=== PATIENT | male | born 1985 | race American Indian/Alaskan Native ===

== ENCOUNTER 2017-07-30 10:58 | Emergency (ER) | payer OTHER ==
[2017-07-30] MEDS ORDERED: TYLENOL PO ONE (12:05)
[2017-07-30] MEDS ORDERED: TYLENOL ONE (12:09)
[2017-07-30 12:39] LABS: Hematocrit 45.2 % (35.5-45.6); Hemoglobin 14.8 gm/dl (11.8-15.2); Mean Corpuscular HGB Conc 33 % (32-34); Mean Corpuscular Hemoglobin 33 pg (28-32); Mean Corpuscular Volume 100 fl (84-94); Platelet Count 293 K/mm3 (140-440); Red Blood Count 4.53 M/mm3 (3.65-5.03); Red Cell Distribution Width 12.7 % (13.2-15.2); White Blood Count 19.5 K/mm3 (4.5-11.0)
[2017-07-30 13:05] LABS: Anion Gap 19 mmol/L; BUN/Creatinine Ratio 12; Blood Urea Nitrogen 11 mg/dL (9-20); Calcium 9.7 mg/dL (8.4-10.2); Carbon Dioxide 26 mmol/L (22-30); Chloride 99.5 mmol/L (98-107); Glucose 93 mg/dL (75-100); Potassium 4.3 mmol/L (3.6-5.0); Sodium 140 mmol/L (137-145)
[2017-07-30] MEDS ORDERED: LIDOCAINE VISCOUS 2% PO ONE (15:09)
--- NOTE | 2017-07-30 15:56 | Emergency Department Report ---
ED ENT HPI - General Chief complaint: Sore Throat Stated complaint: SWOOLEN NECK GLANDS, KNOT IN THROAT Time Seen by Provider: 07/30/17 14:23 Source: patient Mode of arrival: Ambulatory Limitations: No Limitations - History of Present Illness Initial comments: This is a 32-year-old male nontoxic, well nourished in appearance, no acute signs of distress presents to the ED complaining of sore throat 1 week. Patient describes sore throat as sensation as swallowing razor blades. Patient denies any facial swelling, pus, drainage, difficulty breathing, difficulty swallowing, nausea, vomiting, chills, headache, stiff neck, chest and shortness of breath. Patient stated he has subjective fever. Patient denies any allergies or past medical history. MD complaint: sore throat -: Gradual, week(s) (1) Location: throat Severity: mild Severity scale (0 -10): 8 Quality: other (sensation as swallowing razor blades) Consistency: constant Improves with: none Worsens with: none Associated Symptoms: fever, pain with swallowing, sore throat. denies: cough, gum swelling, toothache, tinnitus, hearing loss, discharge from ear, rhinorrhea - Related Data Previous Rx's Medication Instructions Recorded Last Taken Type Amoxicillin 500 mg PO BID #20 capsule 07/30/17 Unknown Rx Nystas/Diphen/Xyl Visc/Mylanta 15 ml MM Q8H 10 Days 07/30/17 Unknown Rx [Magic Mouthwash] Allergies Allergy/AdvReac Type Severity Reaction Status Date / Time No Known Allergies Allergy Unverified 07/30/17 11:59 ED Dental HPI - General Chief complaint: Sore Throat Stated complaint: SWOOLEN NECK GLANDS, KNOT IN THROAT Time Seen by Provider: 07/30/17 14:23 Source: patient Mode of arrival: Ambulatory Limitations: No Limitations - Related Data Previous Rx's Medication Instructions Recorded Last Taken Type Amoxicillin 500 mg PO BID #20 capsule 07/30/17 Unknown Rx Nystas/Diphen/Xyl Visc/Mylanta 15 ml MM Q8H 10 Days 07/30/17 Unknown Rx [Magic Mouthwash] Allergies Allergy/AdvReac Type Severity Reaction Status Date / Time No Known Allergies Allergy Unverified 07/30/17 11:59 ED Review of Systems ROS: Stated complaint: SWOOLEN NECK GLANDS, KNOT IN THROAT Other details as noted in HPI Constitutional: denies: chills, fever Eyes: denies: eye pain, eye discharge, vision change ENT: throat pain. denies: ear pain Respiratory: denies: cough, shortness of breath, wheezing Cardiovascular: denies: chest pain, palpitations Endocrine: no symptoms reported Gastrointestinal: denies: abdominal pain, nausea, diarrhea Genitourinary: denies: urgency, dysuria Musculoskeletal: denies: back pain, joint swelling, arthralgia Skin: denies: rash, lesions Neurological: denies: headache, weakness, paresthesias Psychiatric: denies: anxiety, depression Hematological/Lymphatic: denies: easy bleeding, easy bruising ED Past Medical Hx - Past Medical History Previous Medical History?: No - Surgical History Past Surgical History?: No - Social History Smoking Status: Current Every Day Smoker Substance Use Type: None - Medications Home Medications: Home Medications Medication Instructions Recorded Confirmed Last Taken Type Amoxicillin 500 mg PO BID #20 capsule 07/30/17 Unknown Rx Nystas/Diphen/Xyl Visc/Mylanta 15 ml MM Q8H 10 Days 07/30/17 Unknown Rx [Magic Mouthwash] ED Physical Exam - General Limitations: No Limitations General appearance: alert, in no apparent distress - Head Head exam: Present: atraumatic, normocephalic, normal inspection - Eye Eye exam: Present: normal appearance, PERRL, EOMI. Absent: scleral icterus, conjunctival injection, nystagmus, periorbital swelling, periorbital tenderness Pupils: Present: normal accommodation - ENT ENT exam: Present: mucous membranes moist, TM's normal bilaterally, normal external ear exam - Expanded ENT Exam Expanded Ear exam: Present: normal external inspection Mouth exam: Present: normal external inspection, tongue normal. Absent: drooling, trismus, muffled voice, tongue elevation, laceration Teeth exam: Present: normal inspection Throat exam: Positive: tonsillar erythema, tonsillomegaly (2+), tonsillar exudate. Negative: R peritonsillar mass, L peritonsillar mass - Neck Neck exam: Present: normal inspection, full ROM. Absent: tenderness, meningismus, lymphadenopathy, thyromegaly - Respiratory Respiratory exam: Present: normal lung sounds bilaterally. Absent: respiratory distress, wheezes, rales, rhonchi, stridor, chest wall tenderness, accessory muscle use, decreased breath sounds, prolonged expiratory - Cardiovascular Cardiovascular Exam: Present: regular rate, normal rhythm, normal heart sounds. Absent: systolic murmur, diastolic murmur, rubs, gallop - GI/Abdominal GI/Abdominal exam: Present: soft, normal bowel sounds. Absent: distended, tenderness, guarding, rebound, rigid, diminished bowel sounds - Rectal Rectal exam: Present: deferred - Extremities Exam Extremities exam: Present: normal inspection, full ROM, normal capillary refill. Absent: tenderness, pedal edema, joint swelling, calf tenderness - Back Exam Back exam: Present: normal inspection, full ROM. Absent: tenderness, CVA tenderness (R), CVA tenderness (L), muscle spasm, paraspinal tenderness, vertebral tenderness, rash noted - Neurological Exam Neurological exam: Present: alert, oriented X3, CN II-XII intact, normal gait, reflexes normal - Psychiatric Psychiatric exam: Present: normal affect, normal mood - Skin Skin exam: Present: warm, dry, intact, normal color. Absent: rash ED Course Vital Signs 07/30/17 07/30/17 07/30/17 11:56 12:08 14:27 Temperature 99.6 F Pulse Rate 98 H Respiratory 18 18 18 Rate Blood Pressure 132/82 O2 Sat by Pulse 98 Oximetry - Reevaluation(s) Reevaluation #1: 07/30/17 15:55 Patient is speaking in full sentences with no signs of distress noted. ED Medical Decision Making - Lab Data Result diagrams: 07/30/17 12:14 07/30/17 12:14 - Medical Decision Making 32 male that presents with strep throat. Patient was examined by me and patient is stable. Strep swab has been obtained with positive results. Patient received viscous lidocaine which patient stated sore throat has subsided. Patient be treated with amoxicillin 10 days. Patient was instructed to follow-up with a primary care doctor in 3-5 days or if symptoms worsen and continue return to emergency room as soon as possible possible. Patient is hemodynamically stable with stable vital signs. Patient states he is feeling better. At time time of discharge, the patient does not seem toxic or ill in appearance. No acute signs of distress noted. Patient agrees to discharge treatment plan of care. No further questions noted by the patient. Critical care attestation.: If time is entered above; I have spent that time in minutes in the direct care of this critically ill patient, excluding procedure time. ED Disposition Clinical Impression: Strep throat Disposition: DC-01 TO HOME OR SELFCARE Is pt being admited?: No Does the pt Need Aspirin: No Condition: Stable Instructions: Strep Throat (ED), Amoxicillin/Clavulanate Potassium (By mouth) Additional Instructions: Follow-up with a primary care doctor in 3-5 days or if symptoms worsen and continue return to emergency room as soon as possible possible. Prescriptions: Amoxicillin 500 mg PO BID #20 capsule Nystas/Diphen/Xyl Visc/Mylanta [Magic Mouthwash] 15 ml MM Q8H 10 Days Referrals: PRIMARY CAREMD [Primary Care Provider] - 3-5 Days GILA GORE MD [Staff Physician] - 3-5 Days [facility] [Outside] - 3-5 Days [facility] [place] [Outside] - 3-5 Days Forms: Work/School Release Form(ED)
[2017-07-30 16:10] VITALS: BP 120/84
== END 2017-07-30 16:12 | disposition home or self-care (01) ==
LOC: ED 10:58
DX: J02.0 Streptococcal pharyngitis (principal); F17.200 Nicotine dependence, unspecified, uncomplicated
CPT/HCPCS: 36415; 80048; 85027; 87430; 99283

== ENCOUNTER 2022-07-06 17:10 | Emergency (ER) | payer SELFPAY ==
[2022-07-06 18:42] VITALS: BP 126/77
== END 2022-07-06 19:52 | disposition left against medical advice (07) ==
LOC: ED 17:10
DX: K64.9 Unspecified hemorrhoids (principal); Z53.21 Procedure and treatment not carried out due to patient leaving prior to being seen by health care provider

== ENCOUNTER 2022-07-06 20:41 | Emergency (ER) | payer SELFPAY ==
[2022-07-06 20:51] VITALS: BP 122/80
== END 2022-07-06 21:15 | disposition left against medical advice (07) ==
LOC: ED 20:41
DX: K64.9 Unspecified hemorrhoids (principal); Z53.21 Procedure and treatment not carried out due to patient leaving prior to being seen by health care provider